=== PATIENT | female | born 1945 | race Caucasian/White ===

== ENCOUNTER 2018-03-14 09:32 | Emergency (ER) | payer MEDICARE, OTHER ==
[2018-03-14 09:34] VITALS: BMI 31.1
[2018-03-14 09:50] VITALS: RESP 18
--- NOTE | 2018-03-14 09:54 | ED PDOC ---
Arrival/HPI - General Time Seen by Provider: 03/14/18 09:43 Historian: Patient - History of Present Illness Narrative History of Present Illness (Text): 03/14/18 09:44 72 year old female, with past medical history of hypertension, presents to the Emergency department complaining of head discomfort s/p fall prior to arrival. Patient informs exercising at the gym on the elliptical, when she lost balance and fell backwards onto another machine. Patient informs hitting right side of her head but denies any loss of consciousness. As per patient, she was able to ambulate without any difficulty following the incident but sustained bruising to the right posterior aspect of her head prompting her to present to the Emergency department for medical evaluation. Patient denies denies any fevers, chills, dizziness, chest pain, shortness of breath, dyspnea on exertion, cough, abdominal pain, nausea, vomiting, diarrhea, back pain, neck pain, discharge from her nares or eyes or any other complaints. Time/Duration: Prior to Arrival Symptom Onset: Sudden Symptom Course: Unchanged Quality: Aching Activities at Onset: Other (Exercise) Context: Other (Gym) Past Medical History - Provider Review Nursing Documentation Reviewed: Yes Family/Social History - Physician Review Nursing Documentation Reviewed: Yes Family/Social History: No Known Family HX Allergies/Home Meds Allergies/Adverse Reactions: Allergies No Known Allergies Allergy (Verified 03/14/18 09:34) Review of Systems - Physician Review All systems were reviewed & negative as marked: Yes - Review of Systems Constitutional: Other (right sided head bruising). absent: Fevers Respiratory: absent: SOB, Cough Cardiovascular: absent: Chest Pain, MCINTOSH Gastrointestinal: absent: Abdominal Pain, Diarrhea, Nausea, Vomiting Musculoskeletal: absent: Back Pain, Neck Pain Neurological: absent: Dizziness Physical Exam - Physical Exam Narrative Physical Exam (Text): Constitutional: No acute distress. Head: Normocephalic. Hematoma to posterior aspect of head. Ecchymosis to right mastoid. Eyes: PERRL. ENT: Moist mucous membranes. No discharge from nares or eyes. Neck: Supple. No midline neck tenderness. Cardiovascular: Regular rate. Chest: No tenderness. Respiratory: Clear to auscultation bilaterally. GI: Soft. Nontender. Nondistended. Back: No CVA tenderness. Musculoskeletal: No tenderness or swelling of extremities. Skin: No rash. Neurologic: Alert, no focal deficit. Vital Signs Reviewed: Yes Vital Signs Temp Pulse Resp BP Pulse Ox 03/14/18 11:08 98 F 62 18 150/91 H 98 03/14/18 09:45 98.7 F 61 18 157/96 H 100 Temperature: Afebrile Blood Pressure: Hypertensive Pulse: Regular Respiratory Rate: Normal Appearance: Positive for: Well-Appearing, Non-Toxic, Comfortable Pain Distress: None Mental Status: Positive for: Alert and Oriented X 3 Medical Decision Making ED Course and Treatment: 03/14/18 10:00 Impression: 72 year old female presents to the Emergency department complaining of head discomfort s/p fall. Plan: -- CT of head -- Reassess and disposition Progress Notes: FINDINGS: HEMORRHAGE: No intracranial hemorrhage. BRAIN: No mass effect or edema. No atrophy or chronic microvascular ischemic changes. VENTRICLES: Unremarkable. No hydrocephalus. CALVARIUM: Unremarkable. PARANASAL SINUSES: Unremarkable as visualized. No significant inflammatory changes. MASTOID AIR CELLS: Unremarkable as visualized. No inflammatory changes. OTHER FINDINGS: None. IMPRESSION: No evidence of acute intracranial hemorrhage mass effect or midline shift. No evidence of calvarial fracture. Discharged home, follow up primary care, instructed to return to emergency department for worsening pain, lethargy, vomiting, or any other problem. - RAD Interpretation Radiology Orders: 03/14/18 09:44 HEAD W/O CONTRAST [CT] Stat - Medication Orders Current Medication Orders: Discontinued Medications Acetaminophen (Tylenol 325mg Tab) 650 mg PO STAT STA Stop: 03/14/18 10:45 - Scribe Statement The provider has reviewed the documentation as recorded by the Scribochoa Griffith. All medical record entries made by the Scribe were at my direction and personally dictated by me. I have reviewed the chart and agree that the record accurately reflects my personal performance of the history, physical exam, medical decision making, and the department course for this patient. I have also personally directed, reviewed, and agree with the discharge instructions and disposition. Disposition/Present on Arrival - Present on Arrival Any Indicators Present on Arrival: No - Disposition Have Diagnosis and Disposition been Completed?: Yes Diagnosis: Head injury Disposition: HOME/ ROUTINE Disposition Time: 10:28 Patient Plan: Discharge Condition: STABLE Discharge Instructions (ExitCare): Closed Head Injury Referrals: Suri Watts, [Primary Care Provider] - Follow up with primary Forms: [employer]or (Vietnamese)
--- NOTE | 2018-03-14 10:21 | CT ---
Date of service: 03/14/2018 PROCEDURE: CT HEAD WITHOUT CONTRAST. HISTORY: fall, head injury COMPARISON: None available. TECHNIQUE: Axial computed tomography images were obtained through the head/brain without intravenous contrast. Radiation dose: Total exam DLP = 999.84 mGy-cm. This CT exam was performed using one or more of the following dose reduction techniques: Automated exposure control, adjustment of the mA and/or kV according to patient size, and/or use of iterative reconstruction technique. FINDINGS: HEMORRHAGE: No intracranial hemorrhage. BRAIN: No mass effect or edema. No atrophy or chronic microvascular ischemic changes. VENTRICLES: Unremarkable. No hydrocephalus. CALVARIUM: Unremarkable. PARANASAL SINUSES: Unremarkable as visualized. No significant inflammatory changes. MASTOID AIR CELLS: Unremarkable as visualized. No inflammatory changes. OTHER FINDINGS: None. IMPRESSION: No evidence of acute intracranial hemorrhage mass effect or midline shift. No evidence of calvarial fracture.
[2018-03-14 11:10] VITALS: BP 150/91; PULSE 62; TEMP 98; O2SAT 98
== END 2018-03-14 11:10 | disposition home or self-care (01) ==
LOC: ED 09:32
DX: S09.90XA Unspecified injury of head, initial encounter (principal); W19.XXXA Unspecified fall, initial encounter; Y93.A1 Activity, exercise machines primarily for cardiorespiratory conditioning; Y92.39 Other specified sports and athletic area as the place of occurrence of the external cause; I10 Essential (primary) hypertension